=== PATIENT | female | born 1995 | race African-American/Black ===

== ENCOUNTER 2022-05-02 15:17 | Outpatient (CLI) | payer OTHER, SELFPAY ==
--- NOTE | ~2022-05-02 | US_ITS ---
EXAMINATION: US soft tissue UE RT DATE: 05/02/2022 16:02 INDICATION: R22.31 - Localized swelling, mass and lump, right upper limb . TECHNIQUE: Grayscale and Doppler ultrasound images of the right posterior arm were obtained. COMPARISON: None. FINDINGS: Sonographic interrogation of the region of interest in the right arm posterior to the shoul daniele region of a palpable abnormality reveals a 3.0 x 0.4 x 2.0 cm mildly lobulated echogenic cutaneou s mass. No cystic lesion is identified. No increased vascular flow. IMPRESSION: 3 cm subcutaneous mass likely representing a lipoma. Recommend continued clinical follow-up. If there is associated pain and/or rapid size change, subspecialty referral for biopsy or resection would lik venita be recommended. Reviewed, dictated and finalized at [facility]. IMPRESSION: 3 cm subcutaneous mass likely representing a lipoma. Recommend continued clinic al follow-up. If there is associated pain and/or rapid size change, subspecialt y referral for biopsy or resection would likely be recommended.
== END 2022-05-02 15:18 | disposition home or self-care (01) ==
LOC: ANHIMG 15:25
PROVIDERS: PCP Emergency Medicine; Visit Provider Surgery
DX: R22.31 Localized swelling, mass and lump, right upper limb (principal)
CPT/HCPCS: 76882

== ENCOUNTER 2022-05-23 01:13 | Day surgery (SDC) | payer OTHER, SELFPAY ==
[2022-05-18 13:17] VITALS: BMI 23.5
--- NOTE | 2022-05-18 13:31 | PC.NURSE ---
Report to the Outpatient Waiting Room, entrance under the green pavilion located off [facility], at time 1130 on date 05/23/22. OR Time: 1330. Time changes happen often and if your time is changed the preop area will call you the afternoon before. - You and your visitor will be asked to self-screen and do not enter if you have any COVID symptoms. - Only one visitor and NO children visitors are allowed at this time. - The patient visitor is requested to leave or wait in car when not with patient due to restrictions. - A mask is required within the hospital. Patients may have clear liquids (water, carbonated beverages, clear teas, apple juice) until 3 hours prior to surgery with a maximum of 20 ounces. - No food from midnight until time of surgery Take the following medications with a SIP of water the morning of surgery: NONE Medications to discontinue per physician: N/A Date to take last dose: N/A Please no make-up, nail south african, hairspray, perfume, deodorant, or body powder the day of surgery. No jewelry (including any body piercings) or valuables the day of surgery, leave them at home. Please take a shower or bath the night before, or the morning of, surgery with an antibacterial soap. Wear comfortable, loose fitting clothing. - Jewelry must be removed prior to entering the operating room. Rings and piercings that are not removed may be cut off. - The hospital will not accept responsibility for valuables. - Please leave all valuables, including medications, at home the day of surgery. If you are going home after surgery, a licensed lumber stacker driver must drive you home. - NO public transportation without another adult. - We recommend that an adult stay with you for 24 hours following discharge. - We also recommend that you do not drive, make important decision, drink alcoholic beverages, or take any drugs that were not prescribed by your health care provider for at least 24 hours after your discharge time. Follow any additional instructions given to you from your surgeon. If you or anyone in your household have experienced Covid symptoms in the past week, please notify your surgeon or the nurse liaison at the phone number below for possible testing. Telephone instructions given to PT - PRAMOD CORNEJO and asked if any additional questions and then verbalized understanding. Patient advised to call surgeon office or pre surgery nurse liaison [phone] if any additional questions.
--- NOTE | 2022-05-22 15:31 | P.PNAN_ITS ---
Anes - Initial Pre Proc Eval Procedure: Operation Date: 05/23/22 12:00 Proposed Procedures p Excision of Two Subcutaneous Masses Right Shoulder - Du Diaz MD Date/Time: 05/22/22 15:31 Surgeon: Du Diaz MD Pre Op Diagnosis: Subcutaneous Masses Right Shoulder Patient Data Age: 27 Gender: F Height: 1.63 m Weight: 62.14 kg Allergies Allergy/AdvReac Type Severity Reaction Status Date / Time No Known Allergies Allergy Verified 05/18/22 13:15 Home Medications Medication Instructions Recorded Confirmed Type medroxyprogesterone 10 mg tablet 10 mg PO DAILY 05/18/22 05/18/22 History Patient hx anesthesia problems: none Family hx anesthesia problems: none Results Review: All pre-operative results and documents have been reviewed as part of the pre- operative evaluation. [facility] Past Medical History Medical History (Updated 05/22/22 @ 15:32 by Praveen Bailey MD) Depression Smoker Stomach ulcer Surgical History Surgical History H/O removal of cyst wrist History of breast lump removal Family History Family History Other Breast cancer Hypertension Social History Social History Years smoked: 12 Smoking status: Current every day smoker Tobacco type: cigars Additional smoking assessment comments: 2 CIGARS/DAY AT MOST Alcohol intake: current Alcohol use details: SPECIAL OCCASIONS Substance use: current Substance use type: marijuana Living arrangements: with family Gender identity (if verbalized by the patient): Female Spiritual care concerns: No Anes - Eval Final PreProcedure Day of Procedure 05/22/22 15:31 Patient weight: normal Heart: regular rate and rhythm Lungs: clear to auscultation and normal air movement Airway: Mallampati scale class II Neurological: alert and oriented Last oral intake: >/= 8 hours ASA classification: II Emergent: no Anesthetic plan: proceed Anesthesia type and monitoring: general GIVS and LMA Results Review: All pre-operative results and documents have been reviewed as part of the pre- operative evaluation. Informed Consent: The patient's anesthetic plan and its attendant risks and benefits were discussed with the patient/family/POA. Questions were solicited and answers provided to the satisfaction of the patient/family/POA.
[2022-05-23] MEDS: LACTATED RINGERS 1,000 ML 30 ML IV CONT (10:50)
[2022-05-23 11:03] VITALS: BP 127/91; PULSE 75; RESP 16; TEMP 36.8; O2SAT 97
--- NOTE | 2022-05-23 11:34 | SUR.PREOP ---
PATIENT AWARE HER SURGEON HAS AN EMERGENCY AND WILL DELAY HER START TIME, SHE CALLED HER MOM TO UPDATE
--- NOTE | 2022-05-23 13:13 | WPDHPUPDATE1 ---
History and Physical Update Update Date/Time: 05/23/22 13:13 History and Physical has been reviewed, including an updated exam of the patient. There are NO changes in the patient's condition. Risks, benefits, and alternatives have been discussed and questions answered. Patient agrees to proceed with procedure.
[2022-05-23] MEDS: ceFAZolin 2 GM/D5W 50 ML 2 GM/50 ML BAG IVPB (13:43)
[2022-05-23] MEDS: BUPIVACAINE/EPINEPHRINE 0.25% 50 ML VIAL INFILTRATE (14:09)
[2022-05-23 14:25] VITALS: BP 92/50; PULSE 66; RESP 14; O2SAT 98
--- NOTE | 2022-05-23 14:43 | P.OP_ITS ---
Procedure Note - Detailed Date of Procedure 05/23/22 Pre-op Diagnosis Subcutaneous Masses Right Shoulder Post-op Diagnosis Same Procedure Performed Excision 3 cm subcutaneous mass right deltoid Surgeon Du Diaz MD Exercise Manager Faith BABINA Anesthesia General (G IV S) and Local (0.25% Marcaine with epinephrine) Indications Patient is a 27-year-old woman who has to palpable subcutaneous nodules in the right deltoid area. These have been tender and painful. Ultrasound suggested a 3 cm subcutaneous mass consistent with a lipoma. She is taken to surgery now for excision. Findings The masses which felt to be 2 nodules were actually contiguous and 3 cm overall in length. They appeared to be fat necrosis. Description of Procedure Patient was checked in the preoperative holding area. The proposed incision was marked on the skin. Patient was then taken to surgery and placed in supine position with the right side elevated. Prep and drape of the right upper arm was carried out. Local anesthesia was infiltrated in the area of the anticipated incision. The subcutaneous was infiltrated as well. Incision was made in transverse fashion over the nodule. The initial incision went right through the larger of the 2 nodules. Muscular fascia was exposed. I then palpated and noted that the nodules appeared to be more like fat necrosis than a lipoma. I dissected out the upper portion of the subcutaneous mass and it was sent as a specimen. The more distal aspect of the mass included the 2nd palpable nodule but was contiguous and joined to it. I dissected out this nodule but it was so friable it came out in more than 1 piece. I removed all of the firm lipomatous tissue. This was consistent to what the patient was noting in the office and what was clinically palpable. The tissue was all sent as 1 specimen to pathology. I infiltrated additional local anesthetic into all aspects of the wound. The wound was made hemostatic with the cautery. The skin was closed with subcuticular interrupted 3-0 and 4-0 Vicryl suture. A running 4-0 Monocryl subcuticular skin suture was placed. The wound was dressed with Exofin surgical adhesive. The patient was awakened and taken to recovery in good condition. Sponge and needle counts were correct x2. Estimated Blood Loss -5 Drains No Packing No Pathology Yes (Right deltoid subcutaneous nodule) Complications No immediate complications Condition Stable Disposition Same day [facility] Billing Surgery - Charge Forward: Surgery Billing (Excision 3 cm subcutaneous mass right upper arm)
[2022-05-23 14:50] VITALS: BP 97/54; PULSE 66; RESP 14; O2SAT 98
[2022-05-23] MEDS: oxyCODONE HCL (*CRX) 5 MG TAB IR PO (15:11)
[2022-05-23 15:20] VITALS: BP 126/83; PULSE 78; RESP 16
[2022-05-23 15:45] VITALS: BP 113/76; PULSE 64; RESP 16
== END 2022-05-23 15:54 | disposition home or self-care (01) ==
PROVIDERS: PCP Emergency Medicine; Visit Provider Surgery
PROC: (CPT 23071; principal; 2022-05-23 12:00)
DX: D17.21 Benign lipomatous neoplasm of skin and subcutaneous tissue of right arm (principal); F17.290 Nicotine dependence, other tobacco product, uncomplicated; F12.90 Cannabis use, unspecified, uncomplicated
CPT/HCPCS: 23071; 88304; 88342; A9270; J0690; J2250; J2704; J3010; J7120

== ENCOUNTER 2022-05-28 13:12 | Emergency (ER) | payer OTHER, SELFPAY ==
--- NOTE | ~2022-05-28 | XR_ITS ---
XR shoulder RT min 2V 05/28/2022 14:16 Indication: Recent lymph node removal from the shoulder Procedure: 4 views right shoulder Comparison: No prior studies for comparison. Findings: No fracture, subluxation or dislocation. Focal soft tissue gas is noted just lateral to the humerus, consistent with recent surgery. There is scoliosis of the spine. Lungs are unremarkable. Impression: 1: No acute bone or joint abnormality. Reviewed, dictated and finalized at location A. Impression: 1: No acute bone or joint abnormality.
[2022-05-28 13:17] VITALS: BP 144/102; PULSE 95; RESP 18; TEMP 36.9; O2SAT 100
--- NOTE | 2022-05-28 13:50 | PC.NURSE ---
Dr. Jane at bedside to assess pt.
[2022-05-28] MEDS: KETOROLAC (*BKC) 60 MG/2 ML VIAL IM (14:15)
--- NOTE | 2022-05-28 16:25 | ED.UPPEXIN ---
HPI - Extremity Injury (Upper) General Chief Complaint: Extremity Injury, Upper Stated Complaint: pain and swelling after surgery Time Seen by Provider: 05/28/22 13:41 History of Present Illness HPI narrative: Patient is a 27-year-old female who presents ER with pain in her right shoulder. Patient underwent surgery [address] Diaz to have some subcutaneous cyst/masses removed from the inferior aspect of her deltoid. She has no pain at the incision and no swelling there. She does however have pain in her right shoulder over the anterior aspect of the joint in the AC process, she has decreased range of motion with external rotation and abduction as well as forward flexion due to this. She has been taking [place] at home that does not improve it. She feels like her shoulder slips forward and is unstable. No numbness or tingling in her hand or forearm. Normal range of motion and strength in her fingers and wrist but has increased pain in her shoulder when ranging her elbow. Related Data Home Medications Medication Instructions Recorded Confirmed medroxyprogesterone 10 mg tablet 10 mg PO DAILY 05/18/22 05/23/22 Allergies Allergy/AdvReac Type Severity Reaction Status Date / Time No Known Allergies Allergy Verified 05/23/22 11:01 Review of Systems Review of Systems: All systems reviewed & are unremarkable except as noted in HPI and below Constitutional: Constitutional: Denies chills and Denies fever(s) ENT: Denies nasal congestion and Denies sore throat Cardiovascular: Cardiovascular: Denies chest pain, Denies rapid heart rate and Denies radiating jaw, neck or arm pain Respiratory: Respiratory: Denies cough and Denies dyspnea Musculoskeletal: Musculoskeletal: Reports arthralgias, Reports joint swelling and Denies muscle cramps Neurologic: Denies focal weakness, Denies numbness and Denies weakness PMFSH Past Medical History Medical History (Updated 05/28/22 @ 17:22 by Matthew Jane MD) Depression Smoker Stomach ulcer Surgical History Surgical History H/O removal of cyst wrist History of breast lump removal Family History Family History Other Breast cancer Hypertension Social History Social History (Reviewed 05/17/22 @ 08:38 by NAIMA NugentYaw Years smoked: 12 Smoking status: Current every day smoker Tobacco type: cigars Additional smoking assessment comments: 2 CIGARS/DAY AT MOST Alcohol intake: current Alcohol use details: SPECIAL OCCASIONS Substance use: current Substance use type: marijuana Gender identity (if verbalized by the patient): Female Spiritual care concerns: No Exam Narrative: GENERAL: Well-appearing, well-nourished, and in no acute distress. HEAD: Normocephalic, atraumatic. CHEST: Clear to auscultation. No respiratory distress. HEART: Regular rate and rhythm. Normal peripheral pulses. EXTREMITIES: Focused exam of the right shoulder reveals anterior joint line tenderness as well as tenderness at the AC process. No deformity noted. No redness or contusion. Incision site along the inferior deltoid appears to be well-healing without tenderness or swelling or cellulitis. Skin glue still present. Unremarkable exam distal to the shoulder. SKIN: Warm, dry, no rash. NEURO: Alert and oriented x3. PSYCH: Normal mood and affect. Course Course Emergency Course: Discussed case with orthopedic surgery who recommends patient get her postop follow-up with general surgery first before being referred to orthopedic surgery in case it is related to the original surgery. Discussed case with Dr. Henry who will relay information to Dr. Diaz. Patient will continue take her ibuprofen 600 mg at home for pain. She has some leftover [place] that she takes at night for additional discomfort. Vital Signs Vital signs: Vital Signs Temperature 98.
[2022-05-28 18:19] VITALS: BP 164/100; PULSE 70; RESP 16; O2SAT 99
== END 2022-05-28 18:22 | disposition home or self-care (01) ==
PROVIDERS: Emergency Provider Emergency Medicine; PCP Emergency Medicine
DX: M25.511 Pain in right shoulder (principal); Z98.890 Other specified postprocedural states; F17.290 Nicotine dependence, other tobacco product, uncomplicated
CPT/HCPCS: 73030; 96372; 99283; A4565; J1885